=== PATIENT | female | born 1985 | race Caucasian/White ===

== ENCOUNTER 2019-11-27 09:23 | Outpatient (CLI) | payer OTHER | END 2019-11-27 09:24 | disposition home or self-care (01) | LOC: COV 09:23 | PROVIDERS: ATTEND Family Medicine | DX: R05 Cough (principal); M79.10 Myalgia, unspecified site; R53.83 Other fatigue; J02.9 Acute pharyngitis, unspecified; R19.7 Diarrhea, unspecified; R09.81 Nasal congestion; R11.2 Nausea with vomiting, unspecified; Z20.828 Contact with and (suspected) exposure to other viral communicable diseases ==